=== PATIENT | male | born 1960 | race African-American/Black ===

== ENCOUNTER → 2019-02-13 | Outpatient (CLI) | payer BC | LOC: RAD 14:27 | DX: J98.11 Atelectasis (principal); G47.33 Obstructive sleep apnea (adult) (pediatric); Z95.0 Presence of cardiac pacemaker ==

== ENCOUNTER → 2019-02-27 | Outpatient (CLI) | payer BC | LOC: CAT 02-24 12:23 | DX: R91.8 Other nonspecific abnormal finding of lung field (principal); K80.20 Calculus of gallbladder without cholecystitis without obstruction; Z88.8 Allergy status to other drugs, medicaments and biological substances ==

== ENCOUNTER → 2019-10-23 | Outpatient (CLI) | payer BC | LOC: RAD 12:34 | PROVIDERS: ATTEND Internal Medicine Pulmonary Disease | DX: J92.9 Pleural plaque without asbestos (principal); J98.4 Other disorders of lung ==